=== PATIENT | male | born 1985 | race Caucasian/White ===

== ENCOUNTER 2016-09-17 00:26 | Emergency (ER) | payer OTHER ==
[~2016-09-17] VITALS: Ht 182.9 cm; Wt 117.8 kg
[2016-09-17 00:44] VITALS: BP 131/86; PULSE 81; TEMP 36.8; O2SAT 95; Ht 182.9 cm; Wt 117.8 kg
[2016-09-17] MEDS ORDERED: DIPH25CA65 PO (00:55)
[2016-09-17] MEDS ORDERED: PRED20TA2 PO (00:55)
--- NOTE | 2016-09-17 01:17 | EMERGENCY ROOM VISIT NOTE ---
ED Visit Note First contact with patient: 00:46 CHIEF COMPLAINT: Skin rash HISTORY OF PRESENT ILLNESS: This 31 y/o male patient presents to the emergency department and states they have had swelling and redness and a rash for three days. The rash itches quite a bit. The patient has been outside in the yard or the [place] recently where there could have been exposure to poison danya plants. No fever and no URI symptoms. No shortness of breath. No involvement of the mouth, ears, nose, or eyes. Patient has had this in the past. He is early tried [id number] hydrocortisone cream with no success. He has not tried any Benadryl. REVIEW OF SYSTEMS: A 6 system review of systems was completed with positives and pertinent negatives listed in the HPI. ALLERGIES: NKDA MEDICATIONS: See nursing notes PMH: poison danya SOCIAL HISTORY: , lives at home, leaving for vacation tomorrow PHYSICAL EXAM: Vital Signs: See nurses' notes, vital signs stable. GENERAL: 31 y/o male, in no acute distress, well developed, well nourished. SKIN: There are several linear patches of erythematous lesions, some with small vesicles to chest and arms. The lips, throat, nose, ears, and eyeballs are not involved. No signs of infection. There is no respiratory distress or cough. ED COURSE: Pt give 60 mg Tablets of Prednisone, placed on taper. Also given Benadryl with Rx DIAGNOSIS: Rheus dermatitis DISCHARGE INSTRUCTIONS & TREATMENT: Prednisone - see discharge instructions for dosing schedule. See your own physician or return here if that is not possible for re-evaluation if the rash does not seem to be improving over the next 4 days. Problem List Medical Problems: (1) Hypertension Status: Chronic Current/Historical Medications Scheduled Prednisone (Prednisone Tab), 0 PO DAILY Scheduled PRN Diphenhydramine Hcl (Benadryl Allergy), 2 CAP PO Q6 PRN for Itching Allergies Coded Allergies: No Known Allergies (Unverified , 09/17/16) Vital Signs Date Time Temp Pulse Resp B/P (MAP) Pulse Ox O2 Delivery O2 Flow Rate FiO2 09/17/16 00:44 36.8 81 18 131/86 95 Room Air Medications Administered Medications (Trade) Dose Ordered Sig/Allan Route Start Time Stop Time Status Last Admin Dose Admin Prednisone (PredniSONE TAB) 60 mg NOW STAT PO 09/17/16 00:51 09/17/16 00:53 DC 09/17/16 01:00 60 MG Diphenhydramine HCl (Benadryl Syrup) 50 mg NOW STAT PO 09/17/16 00:51 09/17/16 00:53 DC 09/17/16 01:00 50 MG Departure Information Impression Primary Impression: Poison danya dermatitis Dispostion Home / Self-Care Condition GOOD Prescriptions Diphenhydramine Hcl (BENADRYL ALLERGY) 25 Mg Cap 2 CAP PO Q6 Y for Itching for 7 Days, #60 CAP 2 Refills Prov: Sorin Brunner MD 09/17/16 Prednisone (Prednisone Tab) 20 Mg Tab 0 PO DAILY, #7 TAB 2 TABS DAILY FOR 2 DAYS, THEN 1 TAB DAILY FOR 2 DAYS, THEN 1/2 TAB DAILY FOR 2 DAYS. Prov: Sorin Brunner MD 09/17/16 Forms WORK / SCHOOL INSTRUCTIONS, HOME CARE DOCUMENTATION FORM, IMPORTANT VISIT INFORMATION Patient Instructions My [facility], ED Dermatitis Poison Danya Additional Instructions Take 50 mg Benadryl every 6 hours You have been examined and treated today on an emergency basis only. This is not a substitute for, or an effort to provide, complete comprehensive medical care. It is impossible to recognize and treat all injuries or illnesses in a single emergency department visit. It is therefore important that you follow up closely with your PCP. Call as soon as possible for an appointment. Thank you for your time and consideration. I look forward to speaking with you again soon. Please don't hesitate to call us if you have any questions.
== END 2016-09-17 01:00 | disposition home or self-care (01) ==
LOC: C.EDB 00:27 → C.EDC 01:00
DX: L23.7 Allergic contact dermatitis due to plants, except food (principal); I10 Essential (primary) hypertension

== ENCOUNTER 2017-04-18 05:05 | Emergency (ER) | payer OTHER ==
[~2017-04-18] VITALS: Ht 182.9 cm; Wt 115.0 kg
[~2017-04-18 05:05] MED LIST: DIPH25CA65 PO
[2017-04-18 05:08] VITALS: TEMP 36.7; Ht 182.9 cm; Wt 115.0 kg
[2017-04-18] MEDS ORDERED: DiphenhydrAMINE HCL 50 MG/ML VIAL IV STA (05:14)
[2017-04-18] MEDS ORDERED: DEXAMETHASONE **PF** INJ 10 MG/ML VIAL IV ONE (05:15)
[2017-04-18] MEDS ORDERED: EPINEPHRINE ADULT AUTO-INJECT 0.3 MG SYR IM ONE (05:15)
[2017-04-18] MEDS ORDERED: FAMOTIDINE IV INJ 20 MG in DEXTROSE 5% 100ML 100 ML IV SCH (05:15)
[2017-04-18] MEDS ORDERED: FAMOTIDINE 20MG/5ML IV PUSH IV STA (05:18)
[2017-04-18 05:24] VITALS: O2SAT 97
[2017-04-18] MEDS ORDERED: MULT-506 PO (05:56)
--- NOTE | 2017-04-18 06:00 | EMERGENCY ROOM VISIT NOTE ---
History First contact with patient: 05:11 Chief Complaint: ALLERGIC REACTION Stated Complaint: TROUBLE BREATHING,ITCHY/SWOLLEN HANDS,SWOLLEN EYES History of Present Illness The patient is a 31 year old male who presents to the Emergency Room with complaints of allergic reaction for the past few hours shortly after eating shrimp last night. Patient states he started to feel itchy after eating the shrimp and then started to progress with swelling to his face hands and feet. He states he feels itchy. He's had similar problems before in the past from shrimp but nothing this severe. Patient denies chest pain, dyspnea, abdominal pain, vomiting, diarrhea, cold symptoms. No throat tightness. Review of Systems See HPI for pertinent positives & negatives. A total of 10 systems reviewed and were otherwise negative. Past Medical/Surgical History Medical Problems: (1) Hypertension Family History FH: cancer FH: diabetes mellitus FH: hypertension Social History Smoking Status: Never Smoker Marital Status: Housing Status: lives with family Occupation Status: employed Current/Historical Medications Scheduled Multivitamin (Multivitamin), 1 TAB PO DAILY Physical Exam Vital Signs Date Time Temp Pulse Resp B/P (MAP) Pulse Ox O2 Delivery O2 Flow Rate FiO2 04/18/17 05:28 76 04/18/17 05:26 75 16 129/93 97 Room Air 04/18/17 05:24 97 Room Air 04/18/17 05:24 97 Room Air 04/18/17 05:24 97 Room Air 04/18/17 05:08 36.7 76 18 176/110 95 Room Air Physical Exam VITALS: Vitals are noted on the nurse's note and reviewed by myself. Vital signs hypertensive GENERAL: Pleasant male speaking in full sentences, in no acute distress, nondiaphoretic, well-developed well-nourished. SKIN: Diffuse erythematous blanchable dermatitis and erythematous and edematous hands and feet most consistent with allergic reaction that is blanchable The rest of the skin was without rashes, erythema, or bruising. There is no tenting of the skin. Capillary reflex less than 2 seconds. HEAD: Normocephalic atraumatic. Face: Periorbital edema and erythema concerning for allergic reaction EARS: External auditory canals clear, tympanic membranes pearly valdez without erythema or effusion bilaterally. EYES: Pupils equal round and reactive to light and accommodation. Conjunctivae without injection, sclerae without icterus. Extraocular movements intact. NOSE: Patent, turbinates without inflammation or discharge. MOUTH: Mucous membranes moist. Pharynx without erythema or exudate. Uvula midline. Airway patent. Tongue does not deviate. NECK: Supple without nuchal rigidity. No lymphadenopathy. No thyromegaly. Cervical spine is nontender. No JVD. HEART: Regular rate and rhythm LUNGS: Clear to auscultation bilaterally without wheezes, rales or rhonchi. No dullness to percussion. No retractions or accessory muscle use. ABDOMEN: Positive bowel sounds x 4. Normal tympanic percussion. Soft, nontender, without masses or organomegaly. Richter sign negative. No guarding or rebound tenderness. MUSCULOSKELETAL: No muscle atrophy noted. NEURO: Patient was alert and oriented to person place and time. Normal sensation to light and sharp touch. No focal neurological deficits. Medical Decision & Procedures Medications Administered Medications (Trade) Dose Ordered Sig/Allan Route Start Time Stop Time Status Last Admin Dose Admin Dexamethasone Sodium Phosphate (Dexamethasone Inj Pf) 10 mg NOW ONCE IV 04/18/17 05:15 04/18/17 05:16 DC 04/18/17 05:19 10 MG Diphenhydramine HCl (Benadryl Inj) 50 mg NOW STAT IV 04/18/17 05:14 04/18/17 05:15 DC 04/18/17 05:18 50 MG Famotidine (Pepcid 20mg Iv Push) 20 mg ONE STAT IV 04/18/17 05:18 04/18/17 05:19 DC 04/18/17 05:20 20 MG ED Course Prior records/ancillary studies reviewed. Triage Nursing notes reviewed. The patient's history was concerning for possible allergic reaction. Differential diagnosis: Etiologies such as allergic reaction, anaphylaxis, urticaria, Santizo-Zander syndrome, toxic epidermal necrolysis, erythema multiforme, cellulitis, as well as others were entertained. Physical examination: As above. ER treatment provided: Continuous cardiac monitoring Benadryl 50 mg IV pepcid 20 mg IV Decadron 10 mg IV On reassessment the patient felt better. Diagnostic interpretation by me: Deferred It appears the patient had an allergic reaction. The above treatment did well to reverse the symptoms. After prolonged monitoring and frequent reassessments the patient did very well and symptoms resolved. The patient was counseled on the spectrum of this disease process and told to avoid potential triggers. I gave my usual and customary discussion regarding this issue. Patient is advised not to eat shellfish until cleared by the family care doctor. By the evaluation outlined above emergent etiologies such as recurring anaphylaxis, anaphylatic shock, airway compromise, Santizo-Zander syndrome, toxic epidermal necrolysis, erythema multiforme, infectious etiologies, as well as others were deemed relatively unlikely. The pt informed about the findings as listed above. All questions were answered and pleased with the treatment. Return instructions were outlined and the patient was discharged in stable condition. Outpatient prescription management: EpiPen prednisone Referral: The patient was referred back to primary care physician for follow-up in 2-3 days for a recheck of the current condition. or The patient was referred to Allergy/Immunology for further evaluation. Medical Decision As above Medication Reconcilliation Current Medication List: was personally reviewed by me Blood Pressure Screening Patient's blood pressure: Elevated blood pressure Blood pressure disposition: Elevated BP felt to be situational Impression Primary Impression: Allergic reaction Departure Information Dispostion Home / Self-Care Condition GOOD Referrals No Doctor, Assigned (PCP) Patient Instructions My [facility] Additional Instructions DO NOT drive, drink alcohol, operate machinery, or perform dangerous activities today. You were given medications in the ER that can affect your ability to safely function or operate a vehicle. Do not eat shrimp or shellfish until cleared by the family care doctor. Pramod this as an allergy. Epi-Pen: Use one injection as instructed for severe allergic reactions associated with shortness of breath, difficulty breathing, or throat or tongue swelling. If you use this injection call 911 or proceed immediately to the nearest Emergency Room. Prednisone 50mg: Once daily until the prescription is finished. It is best to take this earlier in the day as some patients note occasional difficulty falling asleep when taken in the late evening. Diphenhydramine(Benadryl) 25mg: use 25 to 50 mg every six hours for swelling, itching, or hives. This medication is sedating and will cause drowsiness. Avoid alcohol, operating machinery or dangerous equipment, working on ladders or roofs, DRIVING, or situations where being under the influence may be dangerous. Zantac 75: Take two pills twice a day along with Benadryl as needed for swelling , itching, or hives. Most people know this for its affect on the stomach, but it also acts similar to, but less potent than Benadryl for allergic reactions. Both the Benadryl and the Zantac are available [id number]. Continue current medications. Return to the emergency department for worsening of your rash, swelling of your face, lips, tongue, or throat, difficulty breathing, vomiting, or as needed. Follow-up with your primary care physician in 2 to 3 days for a recheck of your current condition. Problem Qualifiers Primary Impression: Allergic reaction Encounter type: initial encounter Qualified Codes: T78.40XA - Allergy, unspecified, initial encounter
[2017-04-18] MEDS ORDERED: PRED50TA PO (06:01)
[2017-04-18 06:12] VITALS: BP 152/92; PULSE 80; O2SAT 96
== END 2017-04-18 06:20 | disposition home or self-care (01) ==
LOC: C.EDB 05:06 → C.EDA 06:20
DX: T78.40XA Allergy, unspecified, initial encounter (principal); X58.XXXA Exposure to other specified factors, initial encounter; I10 Essential (primary) hypertension; Z83.3 Family history of diabetes mellitus; Z82.49 Family history of ischemic heart disease and other diseases of the circulatory system

== ENCOUNTER 2017-07-31 20:50 | Emergency (ER) | payer OTHER ==
[~2017-07-31] VITALS: Ht 182.9 cm; Wt 117.3 kg
[~2017-07-31 20:50] MED LIST changes: -DIPH25CA65 PO; +MULT-506 PO
[2017-07-31 20:53] VITALS: TEMP 37; Ht 182.9 cm; Wt 117.3 kg
[2017-07-31] MEDS ORDERED: DEXAMETHASONE SOD INJ 4 MG/ML 5 ML VIAL IM STA (21:09)
[2017-07-31] MEDS ORDERED: PRED50TA PO (21:19)
--- NOTE | 2017-07-31 21:22 | EMERGENCY ROOM VISIT NOTE ---
History First contact with patient: 20:56 Chief Complaint: SKIN PROBLEM Stated Complaint: POISON OAK History of Present Illness The patient is a 32 year old male who presents to the Emergency Room with complaints of a rash. The patient reports that he believes he has poison oak on his arms and legs. The patient was cutting wood in his yard and was exposed to poison oak. He states he has had similar instances multiple times in the past. He states the rash is extremely itchy. He has been taking Benadryl without relief of symptoms. He denies any pain. He denies fevers. He rates his overall discomfort a 04/20. Review of Systems A complete 10 point review of systems was reviewed with the patient with pertinent positives and negatives as per history of present illness. All else were negative. Past Medical/Surgical History Medical Problems: (1) Hypertension Family History FH: cancer FH: diabetes mellitus FH: hypertension Social History Smoking Status: Never Smoker Marital Status: Housing Status: lives with family Occupation Status: employed Current/Historical Medications Scheduled Multivitamin (Multivitamin), 1 TAB PO DAILY Prednisone (Prednisone), 50 MG PO DAILY Physical Exam Vital Signs Date Time Temp Pulse Resp B/P (MAP) Pulse Ox O2 Delivery O2 Flow Rate FiO2 07/31/17 21:53 90 18 135/81 96 07/31/17 20:53 37.0 91 18 152/88 97 Room Air Physical Exam VITALS: Vitals are noted on the nurse's note and reviewed by myself. Vital signs stable. GENERAL: This is a 32-year-old male, in no acute distress, nondiaphoretic, well- developed well-nourished. SKIN: There are multiple erythematous vesicular and crusted lesions to bilateral forearms, hands and left lower leg. The lesions elvie easily. EYES: Pupils equal round and reactive to light and accommodation. MOUTH: Mucous membranes moist. NECK: Supple without nuchal rigidity. No lymphadenopathy. HEART: Regular rate and rhythm without murmurs gallops or rubs. LUNGS: Clear to auscultation bilaterally without wheezes, rales or rhonchi. NEURO: Patient was alert and oriented to person place and time. Medical Decision & Procedures Medications Administered Medications (Trade) Dose Ordered Sig/Allan Route Start Time Stop Time Status Last Admin Dose Admin Dexamethasone Sodium Phosphate (Dexamethasone Inj Pf) 10 mg NOW STAT IM 07/31/17 21:28 07/31/17 21:29 DC 07/31/17 21:28 10 MG Medical Decision Differential diagnosis includes contact dermatitis, allergic dermatitis, urticaria, among others. The patient was evaluated as above. The patient has a physical exam consistent with a contact dermatitis secondary to poison oak. The patient has had similar episodes multiple times in the past and does have known poison oak in his yard. He was given IM Decadron and a short course of prednisone. He was advised to continue the Benadryl. He will follow-up with his PCP for further evaluation. He verbalized understanding of my assessment and treatment plan and was discharged home in good condition. Medication Reconcilliation Current Medication List: was personally reviewed by me Blood Pressure Screening Patient's blood pressure: Normal blood pressure Impression Primary Impression: Contact dermatitis and eczema due to plant Departure Information Dispostion Home / Self-Care Condition GOOD Prescriptions Prednisone (Prednisone) 50 Mg Tab 50 MG PO DAILY for 4 Days, #4 TAB Prov: Flaca Santillan ., ELI 07/31/17 Referrals No Doctor, Assigned (PCP) Patient Instructions My [facility] Additional Instructions You have been treated in the Emergency Department for an Allergic Reaction. You have been treated and monitored in the Emergency Department appropriately. You should take Benadryl (diphenhydramine) 25-50 mg orally every 4-6 hours as needed for symptoms. You have been prescribed Prednisone 50 mg to be taken orally once a day for the next 4 days. This is an anti-inflammatory medicine to be used to help minimize your symptoms. You should take the COMPLETE course of the medication. As with every Emergency Department visit, you should follow-up with your primary care provider in 2-3 days for reevaluation. Return to the Emergency Department if your current symptoms worsen despite treatment course outlined above, or if you develop any of the following symptoms : wheezing, tongue or face swelling, tightness in your throat, shortness of breath, or fainting.
[2017-07-31] MEDS ORDERED: DEXAMETHASONE **PF** INJ 10 MG/ML VIAL IM STA (21:28)
[2017-07-31 21:53] VITALS: BP 135/81; PULSE 90; O2SAT 96
== END 2017-07-31 21:53 | disposition home or self-care (01) ==
LOC: C.EDB 20:51 → C.EDD 21:53
DX: L25.9 Unspecified contact dermatitis, unspecified cause (principal); L30.9 Dermatitis, unspecified; I10 Essential (primary) hypertension

== ENCOUNTER 2017-08-11 01:38 | Emergency (ER) | payer OTHER ==
[~2017-08-11] VITALS: Ht 182.9 cm; Wt 115.8 kg
[2017-08-11 01:42] VITALS: BP 150/99; PULSE 79; TEMP 36.7; O2SAT 96; Ht 182.9 cm; Wt 115.8 kg
[2017-08-11] MEDS ORDERED: DEXAMETHASONE SOD INJ 4 MG/ML 5 ML VIAL IM STA (01:58)
[2017-08-11] MEDS ORDERED: DEXAMETHASONE **PF** INJ 10 MG/ML VIAL ONE (02:07)
--- NOTE | 2017-08-11 02:08 | EMERGENCY ROOM VISIT NOTE ---
History Report prepared by Renetat: Collin Horn Under the Supervision of: Dr. Nancy Mcdaniels D.O. First contact with patient: 01:49 Chief Complaint: SKIN PROBLEM Stated Complaint: POISON OAK History of Present Illness The patient is a 32 year old male who presents to the Emergency Room with complaints of constant itchiness beginning two weeks ago. The patient states that he was exposed to poison oak two weeks ago, and has been itchy since. He notes that he came to the emergency department two weeks ago, and was prescribed Prednisone for his symptoms. He reports that the medication initially made him feel better, but states that his symptoms have not resolved completely. He notes that he has not been in the [place] since his initial exposure. He reports that he has poison oak on his legs, arms, and stomach. He denies any dyspnea and difficulty swallowing. Source of History: patient Onset: two weeks ago Position: other (global) Quality: other (itchiness) Timing: constant Modifying Factors (Relieving): other (Prednisone) Note: The patient denies any dyspnea and difficulty swallowing. Review of Systems See HPI for pertinent positives & negatives. A total of 10 systems reviewed and were otherwise negative. Past Medical & Surgical Medical Problems: (1) Hypertension Family History FH: cancer FH: diabetes mellitus FH: hypertension Social History Smoking Status: Never Smoker Marital Status: Housing Status: lives with family Occupation Status: employed Current/Historical Medications Scheduled Methylprednisolone (Medrol Dosepak), 1 PKT PO UD Multivitamin (Multivitamin), 1 TAB PO DAILY Allergies Coded Allergies: Shrimp (Verified Allergy, Severe, FACIAL SWELLING, 04/18/17) Physical Exam Vital Signs Date Time Temp Pulse Resp B/P (MAP) Pulse Ox O2 Delivery O2 Flow Rate FiO2 08/11/17 01:42 36.7 79 18 150/99 96 Room Air Physical Exam HEENT: Head - normocephalic and atraumatic Pupils are equal, round, and reactive to light. Extraocular eye muscles are intact, and sclera are anicteric. Nose - moist nasal mucosa without discharge. Mouth - moist buccal mucosa. Oropharynx is nonerythematous and there is no tonsillar exudate or edema noted. Neck: Supple; no JVD, nuchal rigidity, cervical lymphadenopathy. Heart: Regular rate and rhythm. There is a normal S1 and S2 with no murmurs, clicks, or gallops appreciated. Lungs: Clear to auscultation bilaterally with no wheezes, rales, or rhonchi. Abdomen: Soft, completely nontender, nondistended, with good bowel sounds. There are no palpable pulsatile masses or hepatosplenomegaly. There is no guarding, rigidity, or rebound noted. Extremities: No evidence of cyanosis, clubbing, or edema. There are easily palpable peripheral pulses. Skin: warm and dry with good turgor, obvious dermatitis from poison oak in various locations on extremities. Medical Decision & Procedures Medications Administered Medications (Trade) Dose Ordered Sig/Allan Route Start Time Stop Time Status Last Admin Dose Admin Dexamethasone Sodium Phosphate (Dexamethasone Inj Pf) 10 mg STK-MED ONCE .ROUTE 08/11/17 02:07 08/11/17 02:08 DC 08/11/17 02:09 10 MG Procedure 0158: Decadron Inj 10mg IM ED Course 0150: Past medical records reviewed. The patient was evaluated in room B2. A complete history and physical exam was performed. 0158: Decadron Inj 10mg IM 0246: Upon reevaluation, the patient is stable. I discussed findings and results with him. He verbalized agreement of the treatment plan. The patient was discharged home. Medical Decision The patient is a 32 year old male who presents to the Emergency Room with complaints of constant itchiness beginning two weeks ago. Differential diagnoses include: recurrent poison oak and allergic reaction. The patient has recurrent poison oak dermatitis. The patient denies being in the [place]man[place] again. I believe that is become reexposed to the oil which is causing his recurrent dermatitis. We talked about specific objects such as doorknobs and steering wheels that could have the oil on them and because the recurrent breakouts of the poison Holly. Also, the patient had been put on a burst of prednisone initially. I will give him a dose of Decadron here and start him on a tapering dose of prednisone. I also suggested the patient use Zanfel for the rash. Medication Reconcilliation Current Medication List: was personally reviewed by me Blood Pressure Screening Patient's blood pressure: Elevated blood pressure Blood pressure disposition: Elevated BP felt to be situational Impression Primary Impression: Poison oak Scribe Attestation The scribe's documentation has been prepared under my direction and personally reviewed by me in its entirety. I confirm that the note above accurately reflects all work, treatment, procedures, and medical decision making performed by me. Departure Information Dispostion Home / Self-Care Prescriptions Methylprednisolone (MEDROL DOSEPAK) 4 Mg Lev 1 PKT PO UD for 6 Days, #1 PKT Prov: Nancy Mcdaniels D.O. 08/11/17 Referrals No Doctor, Assigned (PCP) Forms HOME CARE DOCUMENTATION FORM, IMPORTANT VISIT INFORMATION, WORK / SCHOOL INSTRUCTIONS Patient Instructions My [facility] Additional Instructions Rest Take tapering dose of steroids Zanfel - use as directed.
[2017-08-11] MEDS ORDERED: METH4PAK PO (02:22)
== END 2017-08-11 02:29 | disposition home or self-care (01) ==
LOC: C.EDB 01:39
DX: L23.7 Allergic contact dermatitis due to plants, except food (principal); I10 Essential (primary) hypertension; Z82.49 Family history of ischemic heart disease and other diseases of the circulatory system; Z91.013 Allergy to seafood

== ENCOUNTER 2017-11-19 12:09 | Emergency (ER) | payer OTHER ==
[~2017-11-19] VITALS: Ht 182.9 cm; Wt 116.1 kg
[2017-11-19 12:15] VITALS: TEMP 37.3; Ht 182.9 cm; Wt 116.1 kg
--- NOTE | 2017-11-19 13:08 | DIAGNOSTIC IMAGING REPORT ---
LEFT WRIST 4 VIEWS CLINICAL HISTORY: Trauma. Left wrist injury. FINDINGS: 4 views of the left wrist are obtained. No prior studies are available for comparison at the time of dictation. The skeletal structures are well mineralized. No fracture is seen. The joint spaces of the wrist are preserved. Significant soft tissues along is present around the wrist. IMPRESSION: Soft tissue swelling with no radiographic evidence of acute fracture. Consider short-term radiographic follow-up if there is clinical concern for occult fracture. Electronically signed by: Van Wayne M.D. 11/19/2017 1:07 PM Dictated Date/Time: 11/19/2017 1:05 PM
--- NOTE | 2017-11-19 13:09 | DIAGNOSTIC IMAGING REPORT ---
LEFT FOOT 3 VIEWS CLINICAL HISTORY: Trauma. Left foot injury. FINDINGS: 3 views of the left foot are obtained. No prior studies are available for comparison at the time of dictation. The skeletal structures are well mineralized. No fracture is identified. The joint spaces of the foot are well-maintained. There is no radiographic evidence of Lisfranc injury. There is a tiny plantar calcaneal enthesophyte. An os trigonum is incidentally noted. Mild dorsal soft tissue swelling is observed. IMPRESSION: There is no radiographic evidence of left foot fracture. Electronically signed by: Van Wayne M.D. 11/19/2017 1:08 PM Dictated Date/Time: 11/19/2017 1:07 PM
[2017-11-19] MEDS ORDERED: LIDOCAINE 1% BUFFERED INJ 20 ML VIAL INFIL ONE (13:30)
[2017-11-19] MEDS ORDERED: HYDR2.5L TOP (14:55)
[2017-11-19] MEDS ORDERED: IBUPROFEN 600 MG TAB PO STA (14:58)
[2017-11-19 15:19] VITALS: BP 152/97; PULSE 84; O2SAT 97
--- NOTE | 2017-11-19 15:38 | DIAGNOSTIC IMAGING REPORT ---
LEFT KNEE 3 VIEWS CLINICAL HISTORY: Left knee injury. FINDINGS: AP, crosstable lateral, and sunrise views of the left knee are obtained. No prior studies are available for comparison at the time of dictation. The skeletal structures are well mineralized. No fracture is seen. The joint spaces of the knee are maintained. There is no large joint effusion. The overlying soft tissues are within normal limits. IMPRESSION: No acute bony abnormality is identified in the left knee. Electronically signed by: Van Wayne M.D. 11/19/2017 3:37 PM Dictated Date/Time: 11/19/2017 3:36 PM
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
== END 2017-11-19 15:20 | disposition home or self-care (01) ==
LOC: C.EDB 12:11 → C.EDD 15:20
DX: S81.012A Laceration without foreign body, left knee, initial encounter (principal); S50.812A Abrasion of left forearm, initial encounter; S60.812A Abrasion of left wrist, initial encounter; M79.672 Pain in left foot; V86.06XA Driver of dirt bike or motor/cross bike injured in traffic accident, initial encounter; L23.7 Allergic contact dermatitis due to plants, except food

== ENCOUNTER 2017-11-23 23:24 | Emergency (ER) | payer OTHER ==
[~2017-11-23] VITALS: Ht 182.9 cm; Wt 116.0 kg
[~2017-11-23 23:24] MED LIST changes: +HYDR2.5L TOP; -MULT-506 PO
[2017-11-23 23:32] VITALS: BP 151/95; PULSE 112; TEMP 36.9; O2SAT 97; Ht 182.9 cm; Wt 116.0 kg
[2017-11-23] MEDS ORDERED: DEXAMETHASONE INJ 10 MG in SYRINGE 0 ML IM STA (23:54)
[2017-11-23] MEDS ORDERED: DEXAMETHASONE SOD INJ 10 MG/ML VIAL ONE (23:58)
[2017-11-24] MEDS ORDERED: METH4PAK PO
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
== END 2017-11-24 00:10 | disposition home or self-care (01) ==
LOC: C.EDB 23:26
DX: L25.9 Unspecified contact dermatitis, unspecified cause (principal); I10 Essential (primary) hypertension; Z91.013 Allergy to seafood